=== PATIENT | male | born 1955 | race Caucasian/White ===

== ENCOUNTER 2017-03-27 08:39 | Outpatient (CLI) | payer MEDICAID ==
[2017-03-27 13:06] LABS: BASOPHILS # (AUTO) 0.1 10^3/uL (0.0-0.1); BASOPHILS % (AUTO) 0.6 %; EOSINOPHILS # (AUTO) 0.4 10^3/uL (0.0-0.7); EOSINOPHILS % (AUTO) 4.4 %; HCT - HEMATOCRIT 43.9 % (42.0-52.0); HGB - HEMOGLOBIN 14.7 g/dL (14.0-18.0); LYMPHOCYTES # (AUTO) 2.5 10^3/uL (1.5-3.5); MEAN CORPUSCULAR HEMOGLOBIN 29.2 pg (27.0-31.0); MEAN CORPUSCULAR HGB CONC 33.6 g/dL (32.0-36.0); MEAN CORPUSCULAR VOLUME 86.8 fL (80.0-94.0); MEAN PLATELET VOLUME 9.9 fL (7.4-11.4); MONOCYTES # (AUTO) 0.8 10^3/uL (0.0-1.0); MONOCYTES % (AUTO) 8.9 %; NEUTROPHILS # (AUTO) 5.4 10^3/uL (1.5-6.6); NEUTROPHILS % (AUTO) 59.1 %; NUCLEATED RED BLOOD CELLS AUTO 0.1 /100WBC; RED BLOOD COUNT 5.06 10^6/uL (4.70-6.10); RED CELL DISTRIBUTION WIDTH 13.7 % (12.0-15.0); UNCORRECTED WHITE BLOOD COUNT 9.1 x10^3/uL; WHITE BLOOD COUNT 9.1 x10^3/uL (4.8-10.8)
[2017-03-27 13:56] LABS: ALBUMIN/GLOBULIN RATIO 1.3 (1.0-2.2); BILIRUBIN,TOTAL 0.4 mg/dL (0.2-1.0); BUN - BLOOD UREA NITROGEN 18 mg/dL (6-20); CALCIUM 8.8 mg/dL (8.5-10.3); CARBON DIOXIDE - CO2 28 mmol/L (21-32); CHLORIDE 103 mmol/L (101-111); CHOL/HDL RATIO 3.5 (<5.0); CHOLESTEROL 151 mg/dL; CREATININE 0.8 mg/dL (0.6-1.2); GFR - MDRD 98 (>89); GLUCOSE 102 mg/dL (70-100); HDL CHOLESTEROL 43 mg/dL; LDL/HDL RATIO 2.1 (<3.6); SODIUM 137 mmol/L (135-145); TOTAL PROTEIN 7.5 g/dL (6.7-8.2); TRIGLYCERIDES 78 mg/dL; VLDL CHOLESTEROL 16 mg/dL
== END 2017-03-27 08:40 | disposition home or self-care (01) ==
LOC: LAB.N 08:39
PROVIDERS: ATTEND Family Medicine
DX: F17.210 Nicotine dependence, cigarettes, uncomplicated (principal); J44.9 Chronic obstructive pulmonary disease, unspecified
CPT/HCPCS: 36415; 80053; 80061; 85025

== ENCOUNTER 2017-11-07 08:00 | Outpatient (CLI) | payer MEDICAID ==
[2017-11-07 13:00] LABS: PSA FREE 0.16 ng/mL (0.16-2.81)
[2017-11-07 13:01] LABS: PSA TOTAL 0.73 ng/mL (0.000-2.000)
== END 2017-11-07 08:01 | disposition home or self-care (01) ==
LOC: LAB.N 08:00
PROVIDERS: ATTEND Nurse Practitioner Gerontology
DX: R35.0 Frequency of micturition (principal)
CPT/HCPCS: 36415; 84154

== ENCOUNTER 2018-04-07 18:36 | Emergency (ER) | payer MEDICAID ==
[2018-04-07 18:46] VITALS: BP 166/98
--- NOTE | 2018-04-07 19:00 | ED Physician Documentation ---
History of Present Illness - Stated complaint Stated Complaint: ABDOMINAL PX - Chief complaint Chief Complaint: General - History obtained from History obtained from: Patient - History of Present Illness Timing: How many weeks ago (1) Pain level max: 4 Pain level now: 0 Improved by: standing, walking Worsened by: lying on his stomach - Additonal information Additional information: Patient is a 62-year-old male who presents to the ED complaining of a left- sided rash for 1 week. Also complains of abdominal pain when he lays down. States he has slept on his stomach for 40-50 years and started having pain approximately 1 week ago. No fever. No nausea. No vomiting. No pain when he is standing up or walking around performing his daily activities. No diarrhea. No constipation. Patient saw his primary care provider yesterday and was given a shot of Toradol and a prescription for methocarbamol. States his symptoms are continuing today. Patient describes his abdominal pain as cramping. Currently is asymptomatic. His rash is painful to the touch. Review of Systems Ten Systems: 10 systems reviewed and negative Constitutional: denies: Fever, Chills Nose: denies: Rhinorrhea / runny nose, Congestion Throat: denies: Sore throat Cardiac: denies: Chest pain / pressure Respiratory: denies: Cough GI: denies: Abdominal Swelling, Nausea, Vomiting, Diarrhea, Hematemesis, Bloody / black stool : reports: Frequency. denies: Dysuria, Hesitancy Skin: denies: Rash Musculoskeletal: denies: Neck pain, Back pain Neurologic: denies: Headache PD PAST MEDICAL HISTORY - Past Medical History Past Medical History: Yes Cardiovascular: Hypertension Respiratory: COPD Neuro: CVA GI: Hemorrhoids : Frequency, Kidney stones - Past Surgical History Ortho: Other - Present Medications Home Medications: Ambulatory Orders Medication Instructions Recorded Confirmed Valacyclovir HCl [Valacyclovir] 1,000 mg PO TID #30 tablet 04/07/18 predniSONE [Deltasone] 20 mg PO [id number] #21 tab 04/07/18 - Allergies Allergies/Adverse Reactions: Allergies Allergy/AdvReac Type Severity Reaction Status Date / Time Penicillins Allergy Mild Unknown Verified 04/07/18 18:46 poison oak extract Allergy Mild Rash Verified 04/07/18 18:47 - Social History Does the pt smoke?: Yes Smoking Status: Current every day smoker Does the pt drink ETOH?: Yes Substance Use and Type: Marijuana PD ED PE NORMAL - Vitals Vital signs reviewed: Yes - General General: Alert and oriented X 3, No acute distress - HEENT HEENT: Moist mucous membranes, Pharynx benign - Neck Neck: Supple, no meningeal sign - Cardiac Cardiac: RRR, Strong equal pulses - Respiratory Respiratory: No respiratory distress, Clear bilaterally - Abdomen Abdomen: Soft, Non tender, Non distended - Back Back: No CVA TTP, No spinal TTP - Derm Derm: Warm and dry, Other (macular exanthem over the L side of abdomen and flank. no vesicles or pustules. ) - Extremities Extremities: No tenderness to palpate, No calf tenderness / cord - Neuro Neuro: Alert and oriented X 3 - Psych Psych: Normal mood, Normal affect Results - Vitals Vitals: Vital Signs - 24 hr 04/07/18 18:39 Temperature 36.0 C L Heart Rate 86 Respiratory 18 Rate Blood Pressure 166/98 H O2 Saturation 97 Oxygen O2 Source Room air - Labs Labs: Laboratory Tests 04/07/18 04/07/18 19:01 19:01 WBC 9.6 RBC 5.17 Hgb 15.7 Hct 45.9 MCV 88.9 MCH 30.4 MCHC 34.2 RDW 13.5 Plt Count 183 MPV 9.1 Neut # (Auto) 6.5 Lymph # (Auto) 2.1 Clay # (Auto) 0.7 Eos # (Auto) 0.3 Baso # (Auto) 0.1 Absolute Nucleated RBC 0.01 Nucleated RBC % 0.1 Sodium 137 Potassium 3.7 Chloride 103 Carbon Dioxide 26 Anion Gap 8.0 BUN 19 Creatinine 1.0 Estimated GFR (MDRD) 76 L Glucose 96 Calcium 9.3 Total Bilirubin 0.6 AST 22 ALT 23 Alkaline Phosphatase 69 Total Protein 8.0 Albumin 4.4 Globulin 3.6 Albumin/Globulin Ratio 1.2 Lipase 30 PD MEDICAL DECISION MAKING - ED course Complexity details: reviewed old records (Clinic visit from yesterday), re- evaluated patient, considered differential, d/w patient ED course: Patient appears to have shingles on the left flank. Has a characteristic rash in a single dermatome. Painful to the touch. This appears to be consistent with his pain. Will place him on steroids and antivirals and follow-up with his doctor. No acute findings on laboratory testing. Patient counseled regarding signs and symptoms for which I believe and urgent re-evaluation would be necessary. Patient with good understanding of and agreement to plan and is comfortable going home at this time This document was made in part using voice recognition software. While efforts are made to proofread this document, sound alike and grammatical errors may occur. - Sepsis Event Vital Signs: Vital Signs - 24 hr 04/07/18 18:39 Temperature 36.0 C L Heart Rate 86 Respiratory 18 Rate Blood Pressure 166/98 H O2 Saturation 97 Oxygen O2 Source Room air Departure - Departure Disposition: 01 Home, Self Care Clinical Impression: Shingles Qualifiers: Herpes zoster complications: without complications Qualified Code(s): B02.9 - Zoster without complications Condition: Good Instructions: ED Shingles Follow-Up: Vicente Miller MD [Credentialed Staff Provider] - Within 1 week Prescriptions: predniSONE [Deltasone] 20 mg PO [id number] #21 tab Valacyclovir HCl [Valacyclovir] 1,000 mg PO TID #30 tablet Comments: Take all medications as prescribed. Return if you worsen. Discharge Date/Time: 04/07/18 20:24
[2018-04-07 19:11] LABS: BASOPHILS # (AUTO) 0.1 10^3/uL (0.0-0.1); BASOPHILS % (AUTO) 0.8 %; EOSINOPHILS # (AUTO) 0.3 10^3/uL (0.0-0.7); EOSINOPHILS % (AUTO) 2.8 %; HGB - HEMOGLOBIN 15.7 g/dL (14.0-18.0); LYMPHOCYTES # (AUTO) 2.1 10^3/uL (1.5-3.5); LYMPHOCYTES % (AUTO) 21.6 %; MEAN CORPUSCULAR HEMOGLOBIN 30.4 pg (27.0-31.0); MEAN CORPUSCULAR HGB CONC 34.2 g/dL (32.0-36.0); MEAN CORPUSCULAR VOLUME 88.9 fL (80.0-94.0); MEAN PLATELET VOLUME 9.1 fL (7.4-11.4); MONOCYTES # (AUTO) 0.7 10^3/uL (0.0-1.0); MONOCYTES % (AUTO) 7.6 %; NEUTROPHILS # (AUTO) 6.5 10^3/uL (1.5-6.6); NEUTROPHILS % (AUTO) 67.2 %; PLT - PLATELET COUNT 183 10^3/uL (130-450); RED BLOOD COUNT 5.17 10^6/uL (4.70-6.10); RED CELL DISTRIBUTION WIDTH 13.5 % (12.0-15.0); WHITE BLOOD COUNT 9.6 x10^3/uL (4.8-10.8)
[2018-04-07 19:27] LABS: ALBUMIN 4.4 g/dL (3.2-5.5); ALBUMIN/GLOBULIN RATIO 1.2 (1.0-2.2); BILIRUBIN,TOTAL 0.6 mg/dL (0.2-1.0); CALCIUM 9.3 mg/dL (8.5-10.3)
[2018-04-07] MEDS ORDERED: predniSONE 20 MG TABLET PO STA (20:14)
[2018-04-07] MEDS ORDERED: valACYclovir 500 MG TABLET PO STA (20:14)
== END 2018-04-07 20:24 | disposition home or self-care (01) ==
LOC: ED 18:36
DX: B02.9 Zoster without complications (principal); I10 Essential (primary) hypertension; F17.200 Nicotine dependence, unspecified, uncomplicated
CPT/HCPCS: 36415; 80053; 83690; 85025; 99283; A9270; J7512

== ENCOUNTER 2018-04-17 11:32 | Emergency (ER) | payer MEDICAID ==
--- NOTE | 2018-04-17 12:38 | ED Physician Documentation ---
PD HPI SKIN - Stated complaint Stated Complaint: SIDE PX - Chief complaint Chief Complaint: Back Pain - History obtained from History obtained from: Patient - History of Present Illness Timing - onset: How many weeks ago (2) Timing - duration: Weeks Timing - details: Gradual onset, Still present Location: Abdomen (left flank to abd around in strip of rash), Back Quality / character: Painful, Burning Similar symptoms before: Has not had sx before Recently seen: Emergency Dept (Dx with shingles in recent visit and on steroid and Valtrex. He says he is having deeper pain and worse left flank, wondering if other process going on.) Review of Systems Constitutional: reports: Myalgias. denies: Fever, Chills Nose: denies: Rhinorrhea / runny nose, Congestion Throat: denies: Sore throat Cardiac: denies: Chest pain / pressure, Palpitations Respiratory: denies: Dyspnea, Cough GI: reports: Constipation. denies: Nausea, Vomiting, Diarrhea : denies: Dysuria, Frequency Skin: reports: Rash Musculoskeletal: reports: Back pain. denies: Extremity pain Neurologic: denies: Generalized weakness, Focal weakness, Numbness, Altered mental status, Headache PD PAST MEDICAL HISTORY - Past Medical History Past Medical History: Yes Cardiovascular: Hypertension Respiratory: COPD Neuro: CVA GI: Hemorrhoids : Frequency, Kidney stones - Past Surgical History Past Surgical History: Yes Ortho: Other - Present Medications Home Medications: Ambulatory Orders Medication Instructions Recorded Confirmed Valacyclovir HCl [Valacyclovir] 1,000 mg PO TID #30 tablet 04/07/18 predniSONE [Deltasone] 20 mg PO [id number] #21 tab 04/07/18 Acetaminophen/Cod 300/30 [Tylenol 1 each PO Q4-6H PRN #25 tablet 04/17/18 #3] Amitriptyline [Elavil] 25 mg PO HS #30 tablet 04/17/18 Docusate Sodium 100 mg PO DAILY #30 capsule 04/17/18 Ondansetron HCl [Zofran] 4 mg PO Q6H PRN #20 tablet 04/17/18 predniSONE [Deltasone] 20 mg PO DAILY 5 Days #10 tablet 04/17/18 - Allergies Allergies/Adverse Reactions: Allergies Allergy/AdvReac Type Severity Reaction Status Date / Time Penicillins Allergy Mild Unknown Verified 04/07/18 18:46 poison oak extract Allergy Mild Rash Verified 04/07/18 18:47 - Social History Does the pt smoke?: Yes Smoking Status: Current every day smoker Does the pt drink ETOH?: Yes Does the pt have substance abuse?: No - Immunizations Immunizations are current?: No Immunizations: TDAP >10years/unknown PD ED PE NORMAL - Vitals Vital signs reviewed: Yes - General General: Alert and oriented X 3, Well developed/nourished, Other (does appear uncomfortable with flank pain.) - Neck Neck: Supple, no meningeal sign, No adenopathy - Cardiac Cardiac: RRR, No murmur - Respiratory Respiratory: Clear bilaterally - Abdomen Abdomen: Normal bowel sounds, Soft, Non distended, No organomegaly, Other ( tender in area of shingles rash. ) - Male Male : Deferred - Rectal Rectal: Deferred - Back Back: No spinal TTP, Other (some left flank tenderness to palpation) - Derm Derm: Normal color, Warm and dry, Other (shingles rash left flank to abd as noted on prior ED visit as well. Drying up at this time and no signs of secondary infection. ) - Neuro Neuro: Alert and oriented X 3, No motor deficit, Normal speech Results - Vitals Vitals: Vital Signs - 24 hr 04/17/18 04/17/18 11:45 13:46 Temperature 36.2 C L 36.3 C L Heart Rate 72 63 Respiratory 18 17 Rate Blood Pressure 145/96 H 137/89 H O2 Saturation 97 96 Oxygen O2 Source Room air - Labs Labs: Laboratory Tests 04/17/18 13:00 Urine Color YELLOW Urine Clarity CLEAR Urine pH 6.5 Ur Specific [place] 1.015 Urine Protein NEGATIVE Urine Glucose (UA) NEGATIVE Urine Ketones NEGATIVE Urine Occult Blood NEGATIVE Urine Nitrite NEGATIVE Urine Bilirubin NEGATIVE Urine Urobilinogen 0.2 (NORMAL) Ur Leukocyte Esterase NEGATIVE Ur Microscopic Review NOT INDICATED Urine Culture Comments NOT INDICATED - Rads (name of study) KUB CT Radiology: Prelim report reviewed (no acute process), EMP read contemporaneously PD MEDICAL DECISION MAKING - ED course Complexity details: reviewed results (KUB CT and UA are okay. Presume is still the shingles pain deeper. Can add meds to regimen. ), considered differential ( has the shingles but he is concerned about other reason for the pain as it is also a bit lower than the singles rash. Can get UA/KUB to look for other process as well. ), d/w patient - Sepsis Event Vital Signs: Vital Signs - 24 hr 04/17/18 04/17/18 11:45 13:46 Temperature 36.2 C L 36.3 C L Heart Rate 72 63 Respiratory 18 17 Rate Blood Pressure 145/96 H 137/89 H O2 Saturation 97 96 Oxygen O2 Source Room air Departure - Departure Disposition: 01 Home, Self Care Clinical Impression: Left flank pain Shingles Qualifiers: Herpes zoster complications: without complications Qualified Code(s): B02.9 - Zoster without complications Condition: Stable Record reviewed to determine appropriate education?: Yes Instructions: ED Shingles Prescriptions: Acetaminophen/Cod 300/30 [Tylenol #3] 1 each PO Q4-6H PRN #25 tablet PRN Reason: Pain Amitriptyline [Elavil] 25 mg PO HS #30 tablet Docusate Sodium 100 mg PO DAILY #30 capsule Ondansetron HCl [Zofran] 4 mg PO Q6H PRN #20 tablet PRN Reason: Nausea / Vomiting predniSONE [Deltasone] 20 mg PO DAILY 5 Days #10 tablet Comments: The CT scan and urine test did not show signs of infection or stones or other causes for the pain. Presume the pain is still from the shingles. Finish out the antiviral medicine (a blue pill). We will continue the prednisone and add Elavil to help with the nerve inflammation and irritation. Add Tylenol No. 3 as needed for pain since this is the only medication that you tolerate. Add ondansetron if needed for nausea. Recheck if still not improving over the next several days to week. Discharge Date/Time: 04/17/18 14:22
[2018-04-17] MEDS ORDERED: NAPROXEN 250 MG TABLET PO STA (12:51)
[2018-04-17] MEDS ORDERED: DEXAMETHASONE 10 MG/ML VIAL PO STA (12:51)
[2018-04-17] MEDS ORDERED: ONDANSETRON ODT 4 MG TABLET TL STA (12:51)
[2018-04-17] MEDS: ACETAMINOPHEN/CODEINE 300 MG/30 MG TABLET PO STA ×2 (13:02→13:13)
[2018-04-17 13:09] LABS: BILIRUBIN,URINE NEGATIVE (NEGATIVE); CLARITY,URINE CLEAR (CLEAR); GLUCOSE, URINE (UA) NEGATIVE (NEGATIVE); KETONES,URINE (UA) NEGATIVE (NEGATIVE); LEUKOCYTE ESTERASE, URINE NEGATIVE (NEGATIVE); NITRITE,URINE NEGATIVE (NEGATIVE); OCCULT BLOOD,URINE NEGATIVE (NEGATIVE); PH,URINE 6.5 PH (5.0-7.5); PROTEIN,URINE NEGATIVE (NEGATIVE); UROBILINOGEN,URINE 0.2 (NORMAL) E.U./dL (NORMAL)
[2018-04-17 13:47] VITALS: BP 137/89
--- NOTE | 2018-04-17 14:04 | CT Report ---
Procedure Date: 04/17/2018 Accession Number: [id number] / [id number] Procedure: CT - KUB CPT Code: FULL RESULT: EXAM: CT ABDOMEN AND PELVIS EXAM DATE: 04/17/2018 01:45 PM. CLINICAL HISTORY: Left flank pain. COMPARISONS: None. TECHNIQUE: Routine helical CT imaging was performed through the abdomen and pelvis. IV contrast: None. Enteric contrast: No. Reconstructions: Coronal and sagittal. In accordance with CT protocol optimization, one or more of the following dose reduction techniques were utilized for this exam: automated exposure control, adjustment of mA and/or KV based on patient size, or use of iterative reconstructive technique. FINDINGS: Lung Bases: Unremarkable. Liver: Normal. Fatty infiltration. No masses. Gallbladder/Bile Ducts: Unremarkable. Spleen: Normal. Pancreas: Normal. Adrenal Glands: Normal right adrenal gland. 1.5 x 1.7 cm left adrenal lesion measuring -30 Hounsfield units. Kidneys: Normal. No stones, masses or hydronephrosis. Both ureters are small without stones. Peritoneal Cavity/Bowel: Diverticuli off the colon. No free fluid, free air or adenopathy. No masses or acute inflammatory process. The appendix is well visualized and normal. Pelvic Organs: 6 x 3 cm fat-filled left inguinal hernia. The bladder and visualized pelvic organs are within normal limits. Vasculature: No aneurysms or other significant abnormality. Bones: No significant abnormality. Other: None. IMPRESSION: 1. Fatty liver. 2. 1.5 x 1.7 cm left adrenal adenoma. 3. Small fat-filled left inguinal hernia. 4. Colonic diverticulosis. 5. No radiographic explanation for this gentleman's presenting symptoms. RADIA
== END 2018-04-17 14:22 | disposition home or self-care (01) ==
LOC: ED 11:32
DX: R10.9 Unspecified abdominal pain (principal); B02.9 Zoster without complications; F17.200 Nicotine dependence, unspecified, uncomplicated; I10 Essential (primary) hypertension
CPT/HCPCS: 74176; 81003; 99283; A9270; Q0162; 81001; 87086

== ENCOUNTER 2019-07-03 08:00 | Outpatient (CLI) | payer MEDICAID ==
[2019-07-03 12:35] LABS: BASOPHILS # (AUTO) 0.1 10^3/uL (0.0-0.1); BASOPHILS % (AUTO) 0.7 %; EOSINOPHILS # (AUTO) 0.3 10^3/uL (0.0-0.7); HGB - HEMOGLOBIN 15.8 g/dL (14.0-18.0); LYMPHOCYTES % (AUTO) 23.6 %; MEAN CORPUSCULAR HEMOGLOBIN 28.8 pg (27.0-31.0); MEAN CORPUSCULAR HGB CONC 31.5 g/dL (32.0-36.0); MEAN CORPUSCULAR VOLUME 91.4 fL (80.0-94.0); MONOCYTES # (AUTO) 0.8 10^3/uL (0.0-1.0); MONOCYTES % (AUTO) 9.1 %; NEUTROPHILS # (AUTO) 5.2 10^3/uL (1.5-6.6); NEUTROPHILS % (AUTO) 62.5 %; PLT - PLATELET COUNT 179 10^3/uL (130-450); RED BLOOD COUNT 5.49 10^6/uL (4.70-6.10); RED CELL DISTRIBUTION WIDTH 13.2 % (12.0-15.0); WHITE BLOOD COUNT 8.3 x10^3/uL (4.8-10.8)
[2019-07-03 13:01] LABS: ALBUMIN 4.2 g/dL (3.2-5.5); ALBUMIN/GLOBULIN RATIO 1.2 (1.0-2.2); ALKALINE PHOSPHATASE 72 IU/L (42-121); ALT ALANINE AMINOTRANSFERASE 27 IU/L (10-60); AST ASPARTATE AMINOTRANSFERASE 21 IU/L (10-42); BILIRUBIN,TOTAL 0.6 mg/dL (0.2-1.0); BUN - BLOOD UREA NITROGEN 18 mg/dL (6-20); CALCIUM 9.3 mg/dL (8.5-10.3); CARBON DIOXIDE - CO2 31 mmol/L (21-32); CHLORIDE 100 mmol/L (101-111); CHOLESTEROL 149 mg/dL; CREATININE 0.9 mg/dL (0.6-1.2); GFR - MDRD 85 (>89); GLUCOSE 104 mg/dL (70-100); HDL CHOLESTEROL 49 mg/dL; LDL CHOLESTEROL,CALCULATED 87 mg/dL; LDL/HDL RATIO 1.8 (<3.6); SODIUM 138 mmol/L (135-145); TOTAL PROTEIN 7.7 g/dL (6.7-8.2); VLDL CHOLESTEROL 13 mg/dL
== END 2019-07-03 23:59 | disposition home or self-care (01) ==
LOC: LAB.N 08:00
PROVIDERS: ATTEND Family Medicine
DX: E78.5 Hyperlipidemia, unspecified (principal)
CPT/HCPCS: 36415; 80053; 80061; 83721; 84443; 85025

== ENCOUNTER 2019-09-05 11:08 | Outpatient (CLI) | payer MEDICAID ==
[2019-09-05 19:49] LABS: HB2 TOTAL 16.2 g/dL; HEMOGLOBIN A1C 0.66 g/dL; HEMOGLOBIN A1C % 5.9 % (4.6-6.2)
[2019-09-05 21:42] LABS: TRICHOMONAS VAGINALIS DNA NEGATIVE (NEGATIVE)
[2019-09-06 13:36] LABS: HEPATITIS C ANTIBODY NON-REACTIVE (NON-REACTIVE)
[2019-09-06 14:07] LABS: HIV AG/AB 4TH GEN NON-REACTIVE (NON-REACTIVE)
[2019-09-07 12:51] LABS: HSV 2 IGG TYPE SPECIFIC AB <0.90 index
== END 2019-09-05 23:59 | disposition home or self-care (01) ==
LOC: LAB.N 11:08
PROVIDERS: ATTEND Family Medicine
DX: Z13.1 Encounter for screening for diabetes mellitus (principal); Z11.3 Encounter for screening for infections with a predominantly sexual mode of transmission
CPT/HCPCS: 36415; 81599; 83036; 86592; 86695; 86696; 86803; 87389; 87491; 87591; 87661

== ENCOUNTER 2020-08-10 07:26 | Outpatient (CLI) | payer MEDICAID ==
[2020-08-10 12:14] LABS: BASOPHILS # (AUTO) 0.1 10^3/uL (0.0-0.1); BASOPHILS % (AUTO) 0.7 %; EOSINOPHILS # (AUTO) 0.3 10^3/uL (0.0-0.7); EOSINOPHILS % (AUTO) 3.9 %; HGB - HEMOGLOBIN 15.8 g/dL (14.0-18.0); LYMPHOCYTES # (AUTO) 2.6 10^3/uL (1.5-3.5); LYMPHOCYTES % (AUTO) 30.8 %; MEAN CORPUSCULAR HEMOGLOBIN 29.6 pg (27.0-31.0); MEAN CORPUSCULAR HGB CONC 32.8 g/dL (32.0-36.0); MEAN CORPUSCULAR VOLUME 90.2 fL (80.0-94.0); MEAN PLATELET VOLUME 11.9 fL (7.4-11.4); MONOCYTES # (AUTO) 0.8 10^3/uL (0.0-1.0); MONOCYTES % (AUTO) 9.8 %; NEUTROPHILS # (AUTO) 4.6 10^3/uL (1.5-6.6); NEUTROPHILS % (AUTO) 54.4 %; PLT - PLATELET COUNT 193 10^3/uL (130-450); RED BLOOD COUNT 5.33 10^6/uL (4.70-6.10); RED CELL DISTRIBUTION WIDTH 13.1 % (12.0-15.0); WHITE BLOOD COUNT 8.5 x10^3/uL (4.8-10.8)
[2020-08-10 12:52] LABS: ALBUMIN 3.9 g/dL (3.2-5.5); ALBUMIN/GLOBULIN RATIO 1.2 (1.0-2.2); ALKALINE PHOSPHATASE 65 IU/L (42-121); ALT ALANINE AMINOTRANSFERASE 20 IU/L (10-60); AST ASPARTATE AMINOTRANSFERASE 20 IU/L (10-42); BILIRUBIN,TOTAL 0.6 mg/dL (0.2-1.0); BUN - BLOOD UREA NITROGEN 14 mg/dL (6-20); CARBON DIOXIDE - CO2 26 mmol/L (21-32); CHLORIDE 103 mmol/L (101-111); CHOL/HDL RATIO 3.7 (<5.0); CHOLESTEROL 165 mg/dL; GLUCOSE 100 mg/dL (70-100); HDL CHOLESTEROL 45 mg/dL; LDL CHOLESTEROL,CALCULATED 103 mg/dL; LDL/HDL RATIO 2.3 (<3.6); SODIUM 138 mmol/L (135-145); TOTAL PROTEIN 7.1 g/dL (6.7-8.2); VLDL CHOLESTEROL 17 mg/dL
[2020-08-10 13:07] LABS: HEMOGLOBIN A1c% 5.7 % (4.27-6.07)
== END 2020-08-10 23:59 | disposition home or self-care (01) ==
LOC: LAB.WCP 07:26
PROVIDERS: ATTEND Family Medicine
DX: E78.5 Hyperlipidemia, unspecified (principal); R73.03 Prediabetes
CPT/HCPCS: 36415; 80053; 80061; 83036; 83721; 84443; 85025

== ENCOUNTER 2020-10-20 09:55 | Outpatient (CLI) | payer MEDICAID, MEDICARE ==
[2020-10-20 13:31] LABS: HEMOGLOBIN A1c% 5.8 % (4.27-6.07)
== END 2020-10-20 23:59 | disposition home or self-care (01) ==
LOC: LAB.WCP 09:55
PROVIDERS: ATTEND Family Medicine
DX: R73.03 Prediabetes (principal)
CPT/HCPCS: 36415; 83036

== ENCOUNTER 2021-02-11 16:42 | Outpatient (CLI) | payer MEDICAID | END 2021-02-11 16:43 | disposition home or self-care (01) | LOC: COV 16:42 | PROVIDERS: ATTEND Family Medicine | DX: R05 Cough (principal); Z20.822 Contact with and (suspected) exposure to COVID-19 ==

== ENCOUNTER 2021-07-13 14:27 | Outpatient (CLI) | payer MEDICARE, MEDICAID | END 2021-07-13 14:28 | disposition home or self-care (01) | LOC: COV 14:27 | PROVIDERS: ATTEND Family Medicine | DX: R19.7 Diarrhea, unspecified (principal); Z20.822 Contact with and (suspected) exposure to COVID-19 ==

== ENCOUNTER 2021-08-06 12:43 | Outpatient (CLI) | payer MEDICARE, MEDICAID | END 2021-08-06 12:44 | disposition home or self-care (01) | LOC: COV 12:43 | PROVIDERS: ATTEND Family Medicine | DX: Z20.822 Contact with and (suspected) exposure to COVID-19 (principal) ==

== ENCOUNTER 2021-08-11 08:00 | Outpatient (CLI) | payer MEDICARE, MEDICAID ==
[2021-08-11 17:59] LABS: BASOPHILS # (AUTO) 0.1 10^3/uL (0.0-0.1); BASOPHILS % (AUTO) 0.6 %; BILIRUBIN,URINE NEGATIVE (NEGATIVE); EOSINOPHILS # (AUTO) 0.3 10^3/uL (0.0-0.7); EOSINOPHILS % (AUTO) 3.1 %; GLUCOSE, URINE (UA) NEGATIVE (NEGATIVE); HCT - HEMATOCRIT 50.7 % (42.0-52.0); KETONES,URINE (UA) TRACE mg/dL (NEGATIVE); LEUKOCYTE ESTERASE, URINE TRACE (NEGATIVE); LYMPHOCYTES # (AUTO) 3.1 10^3/uL (1.5-3.5); LYMPHOCYTES % (AUTO) 32.2 %; MEAN CORPUSCULAR HEMOGLOBIN 29.1 pg (27.0-31.0); MEAN CORPUSCULAR HGB CONC 31.6 g/dL (32.0-36.0); MEAN CORPUSCULAR VOLUME 92.2 fL (80.0-94.0); MEAN PLATELET VOLUME 12.2 fL (7.4-11.4); MONOCYTES # (AUTO) 0.8 10^3/uL (0.0-1.0); MONOCYTES % (AUTO) 7.8 %; NEUTROPHILS # (AUTO) 5.4 10^3/uL (1.5-6.6); NITRITE,URINE NEGATIVE (NEGATIVE); OCCULT BLOOD,URINE TRACE-INTA (NEGATIVE); PLT - PLATELET COUNT 205 10^3/uL (130-450); PROTEIN,URINE NEGATIVE (NEGATIVE); RED CELL DISTRIBUTION WIDTH 13.4 % (12.0-15.0); UROBILINOGEN,URINE 0.2 (NORMAL) E.U./dL (NORMAL); WHITE BLOOD COUNT 9.6 x10^3/uL (4.8-10.8)
[2021-08-11 18:36] LABS: BACTERIA,URINE Few /HPF (None Seen); CLARITY,URINE CLEAR (CLEAR); MUCUS,URINE Marked Strands; RBC,URINE 0-5 /HPF (0-5); SQUAMOUS EPITHELIAL CELL,UR RARE Squamous (<= Few)
[2021-08-11 18:56] LABS: ALBUMIN 4.4 g/dL (3.2-5.5); ALBUMIN/GLOBULIN RATIO 1.4 (1.0-2.2); ALKALINE PHOSPHATASE 62 IU/L (42-121); ALT ALANINE AMINOTRANSFERASE 21 IU/L (10-60); AST ASPARTATE AMINOTRANSFERASE 17 IU/L (10-42); BUN - BLOOD UREA NITROGEN 20 mg/dL (6-20); CALCIUM 9.3 mg/dL (8.5-10.3); CARBON DIOXIDE - CO2 28 mmol/L (21-32); CHLORIDE 99 mmol/L (101-111); CHOLESTEROL 154 mg/dL; GFR - MDRD 75 (>89); GLUCOSE 93 mg/dL (70-100); HDL CHOLESTEROL 52 mg/dL; LDL CHOLESTEROL,CALCULATED 87 mg/dL; LDL/HDL RATIO 1.7 (<3.6); POTASSIUM 4.1 mmol/L (3.5-5.0); SODIUM 138 mmol/L (135-145); TOTAL PROTEIN 7.6 g/dL (6.7-8.2); TRIGLYCERIDES 73 mg/dL; VLDL CHOLESTEROL 15 mg/dL
[2021-08-11 19:21] LABS: THYROID STIMULATING HORMONE 1.6 uIU/mL (0.34-5.60)
[2021-08-11 20:57] LABS: ESTIMATED AVERAGE GLUCOSE 126 mg/dL (70-100)
== END 2021-08-11 23:59 | disposition home or self-care (01) ==
LOC: LAB.WCP 08:00
PROVIDERS: ATTEND Nurse Practitioner
DX: R53.83 Other fatigue (principal); E78.5 Hyperlipidemia, unspecified; R73.03 Prediabetes; N40.1 Benign prostatic hyperplasia with lower urinary tract symptoms; R35.0 Frequency of micturition; N13.8 Other obstructive and reflux uropathy
CPT/HCPCS: 36415; 80053; 80061; 81001; 83036; 83721; 84153; 84443; 85025; 87086

== ENCOUNTER 2021-08-14 16:22 | Emergency (ER) | payer MEDICARE, MEDICAID ==
[2021-08-14 16:36] VITALS: BP 142/93
[2021-08-14] MEDS ORDERED: TETANUS/DIPHTHERIA/PERTUSSIS 0.5 ML SYRINGE IM ONE (16:45)
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
== END 2021-08-14 16:54 | disposition home or self-care (01) ==
LOC: ED 16:22
DX: S91.332A Puncture wound without foreign body, left foot, initial encounter (principal); W26.8XXA Contact with other sharp object(s), not elsewhere classified, initial encounter; I10 Essential (primary) hypertension; F17.200 Nicotine dependence, unspecified, uncomplicated; Z23 Encounter for immunization
CPT/HCPCS: 90471; 99282; 99283

== ENCOUNTER 2021-09-01 08:00 | Outpatient (CLI) | payer MEDICARE, MEDICAID | END 2021-09-01 23:59 | disposition home or self-care (01) | LOC: LAB.WCP 08:00 | PROVIDERS: ATTEND Nurse Practitioner | DX: R97.20 Elevated prostate specific antigen [PSA] (principal) | CPT/HCPCS: 36415; 84153 ==

== ENCOUNTER 2021-10-17 09:00 | Outpatient (CLI) | payer MEDICARE, MEDICAID | END 2021-10-17 09:01 | disposition critical access hospital (66) | LOC: EMS 09:00 | DX: M25.571 Pain in right ankle and joints of right foot (principal); W01.0XXA Fall on same level from slipping, tripping and stumbling without subsequent striking against object, initial encounter; Y93.01 Activity, walking, marching and hiking; Y92.008 Other place in unspecified non-institutional (private) residence as the place of occurrence of the external cause | CPT/HCPCS: A0425; A0429 ==

== ENCOUNTER 2021-10-17 09:15 | Emergency (ER) | payer MEDICARE, MEDICAID ==
--- NOTE | 2021-10-17 09:23 | ED Physician Documentation ---
PD HPI LOWER EXT INJURY - Stated complaint Stated Complaint: R ANKLE INJ - History obtained from History obtained from: Patient, EMS - History of Present Illness PD HPI LOW EXT INJURY LOCATION: Right, Ankle Type of injury: Fall, Twist Where injury occurred: Home Timing - onset: Last night Timing - duration: Hours (12) Timing - details: Abrupt onset, Still present Worsened by: Moving, Other (weight bearing) Associated symptoms: Swelling. No: Weakness, Numbness Similar symptoms before: Has not had sx before Recently seen: Not recently seen Review of Systems Constitutional: denies: Fever, Chills Nose: denies: Rhinorrhea / runny nose, Congestion Throat: denies: Sore throat Respiratory: denies: Cough PD PAST MEDICAL HISTORY - Past Medical History Cardiovascular: Hypertension Respiratory: COPD Neuro: CVA GI: Hemorrhoids : Frequency, Kidney stones - Past Surgical History Past Surgical History: Yes Ortho: Other - Present Medications Home Medications: Ambulatory Orders Medication Instructions Recorded Confirmed Valacyclovir HCl [Valacyclovir] 1,000 mg PO TID #30 tablet 04/07/18 predniSONE [Deltasone] 20 mg PO [id number] #21 tab 04/07/18 Acetaminophen/Cod 300/30 [Tylenol 1 each PO Q4-6H PRN #25 tablet 04/17/18 #3] Amitriptyline [Elavil] 25 mg PO HS #30 tablet 04/17/18 Docusate Sodium 100 mg PO DAILY #30 capsule 04/17/18 Ondansetron HCl [Zofran] 4 mg PO Q6H PRN #20 tablet 04/17/18 predniSONE [Deltasone] 20 mg PO DAILY 5 Days #10 tablet 04/17/18 Ibuprofen [Motrin] 600 mg PO TID PRN #25 tab 10/17/21 Ondansetron Odt [Zofran] 4 mg TL Q6H PRN #10 tablet 10/17/21 Oxycodone HCl/Acetaminophen 1 each PO Q6H PRN #14 tablet 10/17/21 [Percocet 5-325 mg Tablet] - Allergies Allergies/Adverse Reactions: Allergies Allergy/AdvReac Type Severity Reaction Status Date / Time Penicillins Allergy Mild Unknown Verified 10/17/21 09:29 poison oak extract Allergy Mild Rash Verified 10/17/21 09:29 - Social History Does the pt smoke?: Yes Smoking Status: Current every day smoker Does the pt drink ETOH?: Yes Does the pt have substance abuse?: No - Immunizations Immunizations are current?: No Immunizations: TDAP >10years/unknown PD ED PE NORMAL - Vitals Vital signs reviewed: Yes - General General: Alert and oriented X 3, No acute distress, Well developed/nourished - Derm Derm: Normal color, Warm and dry - Extremities Extremities: Other (Ankle is tender mainly on the distal fibula. There is mild tenderness in the medial malleolus. The Achilles is firm and nontender. He is able to flex and extend his ankle with only moderate discomfort. Normal pulses color and capillary refill.) - Neuro Neuro: Alert and oriented X 3, No motor deficit, No sensory deficit, Normal speech Results - Vitals Vitals: Vital Signs - 24 hr 10/17/21 10/17/21 09:15 10:24 Temperature 36.3 C L Heart Rate 84 68 Respiratory 16 16 Rate Blood Pressure 178/104 H 156/103 H O2 Saturation 100 95 Oxygen O2 Source Room air - Rads (name of study) ankle Radiology: Prelim report reviewed (distal fibular fracture above angle of the mortis. ), See rad report Procedures - Splint (location) right ankle Splint applied by: Tech Type of splint: Fiberglass, Posterior, Stirrup Other: Patient tolerated well, No complications, Neurovascular intact, Crutches provided PD MEDICAL DECISION MAKING - ED course Complexity details: reviewed results (fibular fracture, with question of mild medial mortis widening.), considered differential, d/w patient ED course: Patient had initially said he had reaction in the past to Percocet so I prescribed hydrocodone. He then called back and said he had gotten the wrong in his reaction had been to Vicodin and he is able to take Percocet. I change the prescription and retransmitted to [facility] pharmacy canceling the first. Departure - Departure Disposition: 01 Home, Self Care Clinical Impression: Fall from slip, trip, or stumble Qualifiers: Encounter type: initial encounter Qualified Code(s): W01.0XXA - Fall on same level from slipping, tripping and stumbling without subsequent striking against object, initial encounter Ankle fracture, lateral malleolus, closed Qualifiers: Encounter type: initial encounter Fracture alignment: nondisplaced Laterality: right Qualified Code(s): S82.64XA - Nondisplaced fracture of lateral malleolus of right fibula, initial encounter for closed fracture Condition: Stable Record reviewed to determine appropriate education?: Yes Instructions: ED Fx Ankle Lateral Malleolus Follow-Up: Henrique Martinez MD [Primary Care Provider] - Long Aly MD [Provider Admit Priv/Credential] - Prescriptions: Ibuprofen [Motrin] 600 mg PO TID PRN #25 tab PRN Reason: Pain Oxycodone HCl/Acetaminophen [Percocet 5-325 mg Tablet] 1 each PO Q6H PRN #14 tablet PRN Reason: pain Ondansetron Odt [Zofran] 4 mg TL Q6H PRN #10 tablet PRN Reason: Nausea / Vomiting Comments: Keep the ankle splinted to allow immobilization of the broken area. This will help the pain the most. Ice elevate and rest the ankle often to reduce swelling that will also help the pain. Anti-inflammatory such as ibuprofen 600 mg 3 times a day with food for the next several days to week. To that add Tylenol every 4-6 hours for pain. Alternatively use hydrocodone with acetaminophen every 6 hours if needed for worse pain. You can combine ondansetron with that if needed for nausea from the medicines. The splint will need to be changed to a cast once the swelling is down. Call the orthopedic office tomorrow for an appointment later in the week or early the following week. You will be having the immobilization/cast of the ankle for likely about 6 weeks. There will be some progression of weightbearing during that time but mostly crutches and nonweightbearing. I transmitted your prescriptions to [facility] pharmacy in [place]. I am prescribing a short course of narcotic pain medication for you. These are potentially dangerous and addictive medications that should be used carefully. These medications may constipate you. Take an [id number] stool softener such as docusate twice daily with plenty of water while taking these medications. If you go 24 hours without a bowel movement, take [id number] MiraLAX, per package instructions. Do not drink or drive while taking these medications. If you received narcotic or sedating medications while in the emergency department do not drive for 24 hours. Store this medication in a safe, secure place and out of reach of children. It is a violation of federal law to give or sell this medication to another person or to use in a manner other than prescribed. The ED will not refill narcotic prescriptions, including prescriptions lost or stolen. You can dispose of unwanted medications at the [facility] office or at several pharmacies such as [facility]. Discharge Date/Time: 10/17/21 11:17
[2021-10-17] MEDS: KETOROLAC 60 MG/2 ML VIAL IM STA (09:34)
[2021-10-17] MEDS: ACETAMINOPHEN 325 MG TABLET PO STA (09:34)
--- NOTE | 2021-10-17 10:02 | XRAY Report ---
PROCEDURE: Ankle 3 View RT INDICATIONS: twisted/fall injury last night TECHNIQUE: 3 views of the ankle were acquired. COMPARISON: None. FINDINGS: Bones: There is a minimally displaced oblique fracture of the distal fibula extending into the mortis e joint. Minimal widening of the medial tibiotalar clear space is seen on AP view. No suspicious bony lesions. Soft tissues: Soft tissue edema is seen surrounding the ankle. IMPRESSION: 1. Minimally displaced oblique fracture of the distal fibula. 2. Possible minimal widening of the medial tibiotalar clear space may indicate an underlying deltoid ligament injury. Reviewed by: Fer Acevedo MD on 10/17/2021 10:01 AM [facility] Approved by: Fer Acevedo MD on 10/17/2021 10:01 AM [facility] Station ID: [id number]
[2021-10-17] MEDS: HYDROcod/ACETAM 5/325 MG TABLET PO STA (10:23)
[2021-10-17 10:24] VITALS: BP 156/103
== END 2021-10-17 11:17 | disposition home or self-care (01) ==
LOC: EDUNIT# → ED 09:15
DX: S82.431A Displaced oblique fracture of shaft of right fibula, initial encounter for closed fracture (principal); W01.0XXA Fall on same level from slipping, tripping and stumbling without subsequent striking against object, initial encounter; Y92.009 Unspecified place in unspecified non-institutional (private) residence as the place of occurrence of the external cause; I10 Essential (primary) hypertension; J44.9 Chronic obstructive pulmonary disease, unspecified; F17.200 Nicotine dependence, unspecified, uncomplicated
CPT/HCPCS: 29515; 73610; 96372; 99283; 99284; A9270

== ENCOUNTER 2021-10-21 13:21 | Outpatient (CLI) | payer MEDICARE, MEDICAID ==
--- NOTE | 2021-10-21 15:22 | XRAY Report ---
PROCEDURE: Ankle 3 View RT INDICATIONS: RIGHT ANKLE PAIN TECHNIQUE: 3 views of the ankle were acquired. COMPARISON: None FINDINGS: Bones: Spiral fracture of the distal fibula at the level of the syndesmosis. No other fractures. Part ially imaged deformity of the mid fibular diaphysis is noted. Ankle mortise is normally aligned. No suspicious bony lesions. Soft tissues: No tibiotalar joint effusion. Achilles tendon appears normal. Small calcifications a t the Achilles tendon insertion. IMPRESSION: 1. Nondisplaced spiral fracture of the distal fibula. 2. No dislocation. Reviewed by: Radha Tai MD on 10/21/2021 3:20 PM PST Approved by: Radha Tai MD on 10/21/2021 3:20 PM PST Station ID: [id number]
--- NOTE | 2021-10-21 15:24 | XRAY Report ---
PROCEDURE: Ankle 2 View RT INDICATIONS: STRESS VIEW RIGHT ANKLE AP VIEW ONLY TECHNIQUE: 1 views of the ankle were acquired. COMPARISON: 10/17/2021 FINDINGS: Bones: Spiral distal fibular fracture is stable during stress. There is no widening of the ankle mort ise. Soft tissues: No suspicious soft tissue calcifications. IMPRESSION: 1. Intact ankle mortise with stress view. 2. Stable nondisplaced spiral fibular fracture. Reviewed by: Radha Tai MD on 10/21/2021 3:23 PM PST Approved by: Radha Tai MD on 10/21/2021 3:23 PM PST Station ID: [id number]
== END 2021-10-21 23:59 | disposition home or self-care (01) ==
LOC: DI.N 13:21
PROVIDERS: ATTEND Physician Assistant
DX: S82.831A Other fracture of upper and lower end of right fibula, initial encounter for closed fracture (principal)

== ENCOUNTER 2021-11-01 08:56 | Outpatient (CLI) | payer MEDICARE, MEDICAID ==
--- NOTE | 2021-11-01 16:55 | XRAY Report ---
PROCEDURE: Ankle 3 View RT INDICATIONS: FRACTURE OF LATERAL MALLEOLUS OF RIGHT FIBULA TECHNIQUE: 30 views of the ankle were acquired. COMPARISON: 10/21/2021 FINDINGS: Bones: Mildly displaced oblique fracture of the distal right fibula is redemonstrated. Fracture is no t definitely changed in appearance compared to 10/21/2021. Soft tissues: No tibiotalar joint effusion. Achilles tendon appears normal. IMPRESSION: Distal right fibula fracture is not significantly changed compared to 10/21/2021. Reviewed by: Pricilla Armenta MD, PhD on 11/01/2021 4:53 PM PST Approved by: Pricilla Armenta MD, PhD on 11/01/2021 4:53 PM PST Station ID: [id number]
== END 2021-11-01 08:57 | disposition home or self-care (01) ==
LOC: DI.WOS 08:56
PROVIDERS: ATTEND Physician Assistant
DX: S82.64XA Nondisplaced fracture of lateral malleolus of right fibula, initial encounter for closed fracture (principal)

== ENCOUNTER 2021-11-30 12:36 | Outpatient (CLI) | payer MEDICARE, MEDICAID ==
--- NOTE | 2021-11-30 16:16 | XRAY Report ---
PROCEDURE: Ankle 3 View RT INDICATIONS: RIGHT ANKLE FRACTURE TECHNIQUE: 2 views of the ankle were acquired. AP view of both ankles. COMPARISON: November 01, 2021 FINDINGS: BONES: Redemonstrated, mildly displaced, oblique fracture of the distal fibula. The ankle mortise is maintained on these nonstressed views. Deformity of the left distal tibia/fibula, which may reflect prior traumatic injury. SOFT TISSUES: Lateral soft tissue swelling. Small tibiotalar joint effusion. IMPRESSION: 1.No significant interval change. Reviewed by: Tonio Newman MD on 11/30/2021 4:15 PM PST Approved by: Tonio Newman MD on 11/30/2021 4:15 PM PST Station ID: [id number]
== END 2021-11-30 12:37 | disposition home or self-care (01) ==
LOC: DI.WOS 12:36
PROVIDERS: ATTEND Physician Assistant
DX: S82.431A Displaced oblique fracture of shaft of right fibula, initial encounter for closed fracture (principal)

== ENCOUNTER 2021-12-21 08:11 | Outpatient (CLI) | payer MEDICARE, MEDICAID ==
--- NOTE | 2021-12-21 18:19 | XRAY Report ---
PROCEDURE: Ankle 3 View RT INDICATIONS: ANKLE FRACTURE TECHNIQUE: 3 views of the ankle were acquired. COMPARISON: 11/30/2021. FINDINGS: Bones: Comminuted fracture of the distal right tibia. Callus formation the fracture site noted compat ible with evolution of healing. Soft tissues: No tibiotalar joint effusion. Achilles tendon appears normal. IMPRESSION: Healing distal right fibular fracture. Reviewed by: Pricilla Armenta MD, PhD on 12/21/2021 6:18 PM PST Approved by: Pricilla Armenta MD, PhD on 12/21/2021 6:18 PM PST Station ID: [id number]
== END 2021-12-21 08:12 | disposition home or self-care (01) ==
LOC: DI.WOS 08:11
PROVIDERS: ATTEND Physician Assistant
DX: S82.64XD Nondisplaced fracture of lateral malleolus of right fibula, subsequent encounter for closed fracture with routine healing (principal)

== ENCOUNTER 2022-11-23 15:40 | Outpatient (CLI) | payer MEDICARE, MEDICAID ==
[2022-11-23 17:54] LABS: BASOPHILS # (AUTO) 0.1 10^3/uL (0.0-0.1); BASOPHILS % (AUTO) 0.7 %; EOSINOPHILS # (AUTO) 0.2 10^3/uL (0.0-0.7); EOSINOPHILS % (AUTO) 2.2 %; HCT - HEMATOCRIT 48.8 % (42.0-52.0); HGB - HEMOGLOBIN 15.6 g/dL (14.0-18.0); LYMPHOCYTES # (AUTO) 2.6 10^3/uL (1.5-3.5); LYMPHOCYTES % (AUTO) 27.9 %; MEAN CORPUSCULAR HEMOGLOBIN 28.9 pg (27.0-31.0); MEAN CORPUSCULAR VOLUME 90.4 fL (80.0-94.0); MEAN PLATELET VOLUME 11.4 fL (7.4-11.4); MONOCYTES # (AUTO) 0.7 10^3/uL (0.0-1.0); MONOCYTES % (AUTO) 7.8 %; NEUTROPHILS # (AUTO) 5.6 10^3/uL (1.5-6.6); NEUTROPHILS % (AUTO) 61.1 %; PLT - PLATELET COUNT 184 10^3/uL (130-450); RED CELL DISTRIBUTION WIDTH 12.8 % (12.0-15.0); WHITE BLOOD COUNT 9.1 x10^3/uL (4.8-10.8)
[2022-11-23 18:10] LABS: ALBUMIN 4.2 g/dL (3.2-5.5); ALBUMIN/GLOBULIN RATIO 1.2 (1.0-2.2); ALKALINE PHOSPHATASE 55 IU/L (42-121); ALT ALANINE AMINOTRANSFERASE 18 IU/L (10-60); AST ASPARTATE AMINOTRANSFERASE 18 IU/L (10-42); BILIRUBIN,TOTAL 0.9 mg/dL (0.2-1.0); BUN - BLOOD UREA NITROGEN 15 mg/dL (6-20); CALCIUM 9.4 mg/dL (8.5-10.3); CARBON DIOXIDE - CO2 28 mmol/L (21-32); CHLORIDE 97 mmol/L (101-111); CHOL/HDL RATIO 2.9 (<5.0); CHOLESTEROL 154 mg/dL; GFR - MDRD 75 (>89); GLUCOSE 92 mg/dL (70-100); HDL CHOLESTEROL 54 mg/dL; LDL CHOLESTEROL,CALCULATED 79 mg/dL; LDL/HDL RATIO 1.5 (<3.6); POTASSIUM 4.4 mmol/L (3.5-5.0); SODIUM 137 mmol/L (135-145); TOTAL PROTEIN 7.7 g/dL (6.7-8.2); TRIGLYCERIDES 103 mg/dL; VLDL CHOLESTEROL 21 mg/dL
[2022-11-23 18:19] LABS: THYROID STIMULATING HORMONE 1.31 uIU/mL (0.34-5.60)
[2022-11-23 20:57] LABS: ESTIMATED AVERAGE GLUCOSE 128 mg/dL (70-100); HEMOGLOBIN A1c% 6.1 % (4.27-6.07)
== END 2022-11-23 15:41 | disposition home or self-care (01) ==
LOC: LAB.N 15:40
PROVIDERS: ATTEND Nurse Practitioner
DX: E78.5 Hyperlipidemia, unspecified (principal); R53.83 Other fatigue; N40.1 Benign prostatic hyperplasia with lower urinary tract symptoms; N13.8 Other obstructive and reflux uropathy; R73.03 Prediabetes
CPT/HCPCS: 36415; 80053; 80061; 83036; 83721; 84153; 84443; 85025

== ENCOUNTER 2022-12-31 13:50 | Emergency (ER) | payer MEDICARE, MEDICAID ==
[2022-12-31 13:58] VITALS: BP 141/94
--- NOTE | 2022-12-31 14:12 | ED Physician Documentation ---
PD HPI DYSPNEA - Stated complaint Stated Complaint: COUGH - Chief complaint Chief Complaint: Resp - History obtained from History obtained from: Patient - Additional information Additional information: 67-year-old gentleman with history of mild COPD presents with increased cough over the last 4 days with some production but he has not looked at the sputum. He is only short of breath but does not feel particularly more short of breath than normal. He denies fevers or chills. No known sick contacts. PD PAST MEDICAL HISTORY - Past Medical History Cardiovascular: Hypertension Respiratory: COPD Neuro: CVA GI: Hemorrhoids : Frequency, Kidney stones - Past Surgical History Past Surgical History: Yes Ortho: Other - Present Medications Home Medications: Ambulatory Orders Medication Instructions Recorded Confirmed Valacyclovir HCl [Valacyclovir] 1,000 mg PO TID #30 tablet 04/07/18 predniSONE [Deltasone] 20 mg PO [id number] #21 tab 04/07/18 Acetaminophen/Cod 300/30 [Tylenol 1 each PO Q4-6H PRN #25 tablet 04/17/18 #3] Amitriptyline [Elavil] 25 mg PO HS #30 tablet 04/17/18 Docusate Sodium 100 mg PO DAILY #30 capsule 04/17/18 ondansetron HCL [Zofran] 4 mg PO Q6H PRN #20 tablet 04/17/18 predniSONE [Deltasone] 20 mg PO DAILY 5 Days #10 tablet 04/17/18 Ibuprofen [Motrin] 600 mg PO TID PRN #25 tab 10/17/21 Ondansetron Odt [Zofran] 4 mg TL Q6H PRN #10 tablet 10/17/21 Oxycodone HCl/Acetaminophen 1 each PO Q6H PRN #14 tablet 10/17/21 [Percocet 5-325 mg Tablet] Doxycycline [Vibramycin] 100 mg PO BID #14 tablet 12/31/22 predniSONE [Deltasone] 20 mg PO [id number] #21 tab 12/31/22 - Allergies Allergies/Adverse Reactions: Allergies Allergy/AdvReac Type Severity Reaction Status Date / Time Penicillins Allergy Mild Unknown Verified 12/31/22 13:58 poison oak extract Allergy Mild Rash Verified 12/31/22 13:58 acetaminophen [From Vicodin] Allergy Emesis Verified 12/31/22 13:58 hydrocodone [From Vicodin] Allergy Emesis Verified 12/31/22 13:58 - Social History Does the pt smoke?: Yes Smoking Status: Current every day smoker Does the pt drink ETOH?: Yes Does the pt have substance abuse?: No - Immunizations Immunizations are current?: No Immunizations: TDAP >10years/unknown PD ED PE NORMAL - Vitals Vital signs reviewed: Yes - General General: Alert and oriented X 3, No acute distress - Neck Neck: Supple, no meningeal sign, No bony TTP - Cardiac Cardiac: RRR, Other (Pulse is about 80 on my exam.) - Respiratory Respiratory: No respiratory distress, Other (Mildly diminished at the bases with mild expiratory wheezes.) - Abdomen Abdomen: Non tender - Derm Derm: Normal color, Warm and dry - Extremities Extremities: No edema, No calf tenderness / cord - Neuro Neuro: Alert and oriented X 3, Normal speech - Psych Psych: Normal mood, Normal affect Results - Vitals Vitals: Vital Signs - 24 hr 12/31/22 13:54 Temperature 36.3 C L Heart Rate 45 L Respiratory 16 Rate Blood Pressure 141/94 H O2 Saturation 96 Oxygen O2 Source Room air PD Medical Decision Making - ED course Complexity details: reviewed old records (Spirometry report about 5 to 7 years ago showing mild COPD.) ED course: 67-year-old gentleman presents with an apparent COPD exacerbation which we will treat with antibiotics and steroids. Departure - Departure Disposition: 01 Home, Self Care Clinical Impression: COPD exacerbation Condition: Good Record reviewed to determine appropriate education?: Yes Instructions: COPD Dc, ED Smoking Cessation Prescriptions: predniSONE [Deltasone] 20 mg PO [id number] #21 tab Doxycycline [Vibramycin] 100 mg PO BID #14 tablet Comments: I sent your prescriptions electronically to [email or web address] in [place].++ Call your doctor to arrange a follow-up appointment, make the next available appointment. In the interim, return anytime if worse or if new symptoms develop.
== END 2022-12-31 14:20 | disposition home or self-care (01) ==
LOC: ED 13:50
DX: J44.1 Chronic obstructive pulmonary disease with (acute) exacerbation (principal); I10 Essential (primary) hypertension; F17.200 Nicotine dependence, unspecified, uncomplicated; Z79.899 Other long term (current) drug therapy
CPT/HCPCS: 99282; 99284

== ENCOUNTER 2023-01-12 12:12 | Outpatient (CLI) | payer MEDICARE, MEDICAID ==
--- NOTE | 2023-01-12 13:55 | XRAY Report ---
PROCEDURE: Chest 2 View X-Ray INDICATIONS: DYSPNEA TECHNIQUE: 2 views of the chest were acquired. COMPARISON: None. FINDINGS: Surgical changes and devices: None. Lungs and pleura: No pleural effusions or pneumothorax. Lungs are clear. Mediastinum: Mediastinal contours are normal. Heart size is normal. Bones and chest wall: No suspicious bony abnormalities. Soft tissues appear unremarkable. IMPRESSION: No acute cardiopulmonary process. Reviewed by: Claudy Saenz on 01/12/2023 1:54 PM PDT Approved by: Claudy Saenz on 01/12/2023 1:54 PM PDT Station ID: [id number]
== END 2023-01-12 12:13 | disposition home or self-care (01) ==
LOC: DI 12:12
PROVIDERS: ATTEND Nurse Practitioner
DX: R06.00 Dyspnea, unspecified (principal)

== ENCOUNTER 2023-02-09 13:15 | Outpatient (CLI) | payer MEDICARE, MEDICAID ==
[2023-02-09] MEDS ORDERED: ALBUTEROL 1 PUFF INH STA (17:31)
== END 2023-02-09 13:16 | disposition home or self-care (01) ==
LOC: RT 13:15
PROVIDERS: ATTEND Nurse Practitioner
DX: R06.00 Dyspnea, unspecified (principal)
CPT/HCPCS: 94060; 94729

== ENCOUNTER 2023-03-23 08:00 | Outpatient (CLI) | payer MEDICARE, MEDICAID ==
--- NOTE | 2023-03-23 20:39 | XRAY Report ---
PROCEDURE: Ankle 3 View RT INDICATIONS: RIGHT ANKLE FRACTURE TECHNIQUE: 3 views of the ankle were acquired. COMPARISON: 01/18/2023, 12/21/2022 and 11/30/2022. FINDINGS: Bones: There is interval further healing at oblique fibular shaft fracture site. Radiolucency is not ed in most inferior portion of the fracture site. No new fracture or dislocation. Ankle mortise is no rmally aligned. No suspicious bony lesions. Soft tissues: No tibiotalar joint effusion. Achilles tendon appears normal. IMPRESSION: Nearly healed distal fibular shaft fracture. No new fracture or dislocation. Ankle mortise is congrue nt. Reviewed by: Hakeem Charles MD on 03/23/2023 8:37 PM PDT Approved by: Hakeem Charles MD on 03/23/2023 8:37 PM PDT Station ID: [id number]
--- NOTE | 2023-03-23 20:40 | XRAY Report ---
PROCEDURE: Tib/Fib LT INDICATIONS: LEFT LWR LEG PAIN HX FRACTURE TECHNIQUE: 2 views of the tibia and fibula were acquired. COMPARISON: None. FINDINGS: Bones: Old healed fractures involving distal tibial shaft and mid to distal fibular shaft are seen w ith chronic-appearing deformity. No acute fracture or dislocation. Moderate to severe tibiotalar join t osteoarthritic changes are noted. No suspicious bony lesions. Soft tissues: No suspicious soft tissue calcifications or masses. IMPRESSION: Old fractures involving distal tibial shaft and mid to distal fibular shaft with chronic-appearing de formity. 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 No acute fracture or dislocation. Reviewed by: Hakeem Charles MD on 03/23/2023 8:38 PM PDT Approved by: Hakeem Charles MD on 03/23/2023 8:38 PM PDT Station ID: [id number]
== END 2023-03-23 23:59 | disposition home or self-care (01) ==
LOC: DI.WOS 08:00
PROVIDERS: ATTEND Physician Assistant Surgical
DX: S82.202D Unspecified fracture of shaft of left tibia, subsequent encounter for closed fracture with routine healing (principal); S82.402D Unspecified fracture of shaft of left fibula, subsequent encounter for closed fracture with routine healing; M19.072 Primary osteoarthritis, left ankle and foot

== ENCOUNTER 2023-06-19 11:50 | Outpatient (CLI) | payer MEDICARE, MEDICAID ==
[2023-06-19] MEDS ORDERED: ALBUTEROL 1 PUFF INH STA (13:57)
== END 2023-06-19 11:51 | disposition home or self-care (01) ==
LOC: RT 11:50
PROVIDERS: ATTEND Nurse Practitioner
DX: R06.00 Dyspnea, unspecified (principal)
CPT/HCPCS: 94060; 94729

== ENCOUNTER 2023-10-11 11:47 | Outpatient (CLI) | payer MEDICARE, MEDICAID ==
--- NOTE | 2023-10-11 15:36 | Ultrasound Report ---
PROCEDURE: Abdomen Limited INDICATIONS: HERNIA TECHNIQUE: Real-time focused scanning was performed of the abdomen, with image documentation. COMPARISONS: None. FINDINGS: Limited ultrasound images in the right upper quadrant and right lower quadrant of the abdominal wall demonstrate no hernia. IMPRESSION: Limited ultrasound for hernia demonstrates no evidence of hernia in the right upper quadrant or right lower quadrant. Reviewed by: Rickie Shin MD on 10/11/2023 3:35 PM PST Approved by: Rickie Shin MD on 10/11/2023 3:35 PM PST Station ID: [id number]
== END 2023-10-11 11:48 | disposition home or self-care (01) ==
LOC: DI 11:47
PROVIDERS: ATTEND Nurse Practitioner
DX: K46.9 Unspecified abdominal hernia without obstruction or gangrene (principal)

== ENCOUNTER 2023-12-20 11:18 | Outpatient (CLI) | payer MEDICARE, MEDICAID ==
[2023-12-20 17:41] LABS: BASOPHILS # (AUTO) 0.1 10^3/uL (0.0-0.1); BASOPHILS % (AUTO) 0.9 %; EOSINOPHILS # (AUTO) 0.3 10^3/uL (0.0-0.7); EOSINOPHILS % (AUTO) 3.2 %; HCT - HEMATOCRIT 49.4 % (42.0-52.0); HGB - HEMOGLOBIN 15.9 g/dL (14.0-18.0); LYMPHOCYTES # (AUTO) 2.2 10^3/uL (1.5-3.5); LYMPHOCYTES % (AUTO) 24.5 %; MEAN CORPUSCULAR HEMOGLOBIN 28.9 pg (27.0-31.0); MEAN CORPUSCULAR HGB CONC 32.2 g/dL (32.0-36.0); MEAN CORPUSCULAR VOLUME 89.7 fL (80.0-94.0); MEAN PLATELET VOLUME 12.2 fL (7.4-11.4); MONOCYTES # (AUTO) 0.7 10^3/uL (0.0-1.0); MONOCYTES % (AUTO) 7.8 %; NEUTROPHILS # (AUTO) 5.7 10^3/uL (1.5-6.6); NEUTROPHILS % (AUTO) 63.5 %; PLT - PLATELET COUNT 197 10^3/uL (130-450); RED BLOOD COUNT 5.51 10^6/uL (4.70-6.10); RED CELL DISTRIBUTION WIDTH 12.8 % (12.0-15.0)
[2023-12-20 18:03] LABS: ALBUMIN 4.2 g/dL (3.2-5.5); ALBUMIN/GLOBULIN RATIO 1.3 (1.0-2.2); ALKALINE PHOSPHATASE 72 IU/L (42-121); ALT ALANINE AMINOTRANSFERASE 20 IU/L (10-60); AST ASPARTATE AMINOTRANSFERASE 17 IU/L (10-42); BILIRUBIN,TOTAL 0.9 mg/dL (0.2-1.0); BUN - BLOOD UREA NITROGEN 14 mg/dL (6-20); CALCIUM 9.7 mg/dL (8.5-10.3); CARBON DIOXIDE - CO2 28 mmol/L (21-32); CHLORIDE 104 mmol/L (101-111); CHOL/HDL RATIO 2.1 (<5.0); CHOLESTEROL 111 mg/dL; CREATININE 0.9 mg/dL (0.6-1.3); GFR - MDRD 84 (>89); GLUCOSE 96 mg/dL (74-104); HDL CHOLESTEROL 52 mg/dL; LDL CHOLESTEROL,CALCULATED 43 mg/dL; LDL/HDL RATIO 0.8 (<3.6); POTASSIUM 4.3 mmol/L (3.5-4.5); SODIUM 137 mmol/L (135-145); TOTAL PROTEIN 7.5 g/dL (6.4-8.9); TRIGLYCERIDES 81 mg/dL (48-352); VLDL CHOLESTEROL 16 mg/dL
[2023-12-21 00:46] LABS: ESTIMATED AVERAGE GLUCOSE 123 mg/dL (70-100); HEMOGLOBIN A1c% 5.9 % (4.27-6.07)
== END 2023-12-20 11:19 | disposition home or self-care (01) ==
LOC: LAB.N 11:18
PROVIDERS: ATTEND Nurse Practitioner
DX: E78.5 Hyperlipidemia, unspecified (principal); R73.03 Prediabetes; N40.1 Benign prostatic hyperplasia with lower urinary tract symptoms; N13.8 Other obstructive and reflux uropathy; R35.0 Frequency of micturition; R53.83 Other fatigue
CPT/HCPCS: 36415; 80053; 80061; 83036; 83721; 84153; 85025

== ENCOUNTER 2024-07-18 08:00 | Outpatient (CLI) | payer MEDICARE, MEDICAID ==
[2024-07-18 17:41] LABS: BASOPHILS # (AUTO) 0.1 10^3/uL (0.0-0.1); BASOPHILS % (AUTO) 0.8 %; EOSINOPHILS # (AUTO) 0.4 10^3/uL (0.0-0.7); EOSINOPHILS % (AUTO) 3.8 %; HCT - HEMATOCRIT 49.1 % (42.0-52.0); HGB - HEMOGLOBIN 15.6 g/dL (14.0-18.0); LYMPHOCYTES # (AUTO) 2.3 10^3/uL (1.5-3.5); LYMPHOCYTES % (AUTO) 24.3 %; MEAN CORPUSCULAR HEMOGLOBIN 29.4 pg (27.0-31.0); MEAN CORPUSCULAR HGB CONC 31.8 g/dL (32.0-36.0); MEAN CORPUSCULAR VOLUME 92.6 fL (80.0-94.0); MEAN PLATELET VOLUME 12.6 fL (7.4-11.4); MONOCYTES # (AUTO) 0.7 10^3/uL (0.0-1.0); MONOCYTES % (AUTO) 7.7 %; NEUTROPHILS # (AUTO) 6.1 10^3/uL (1.5-6.6); NEUTROPHILS % (AUTO) 63.1 %; PLT - PLATELET COUNT 191 10^3/uL (130-450); WHITE BLOOD COUNT 9.6 x10^3/uL (4.8-10.8)
[2024-07-18 17:58] LABS: ALBUMIN 4.2 g/dL (3.2-5.5); ALBUMIN/GLOBULIN RATIO 1.7 (1.0-2.2); BILIRUBIN,TOTAL 0.5 mg/dL (0.2-1.0); CALCIUM 9.5 mg/dL (8.5-10.3); CREATININE 0.9 mg/dL (0.6-1.3); POTASSIUM 4.5 mmol/L (3.5-4.5); TOTAL PROTEIN 6.7 g/dL (6.4-8.9)
[2024-07-18 20:51] LABS: ESTIMATED AVERAGE GLUCOSE 111 mg/dL (70-100); HEMOGLOBIN A1c% 5.5 % (4.27-6.07)
== END 2024-07-18 23:59 | disposition home or self-care (01) ==
LOC: LAB.N 08:00
PROVIDERS: ATTEND Nurse Practitioner
DX: B35.1 Tinea unguium (principal); R73.03 Prediabetes
CPT/HCPCS: 36415; 80053; 83036; 85025